=== PATIENT | male | born 1945 | race Caucasian/White ===

== ENCOUNTER → 2017-03-06 | Outpatient (CLI) | payer MEDICARE ==
[~2017-03-06] MED LIST: GLIM2TAB2 PO; GLIP5TAB10 PO; HYDR-3307 PO; LACT10SO28 PO; MAGN64TA9 PO; MORP15TA39 PO; OLME20TA PO; OMEP-110 PO; ONDA4TAB7 PO; OXYC20TA2 PO; OXYC5TAB3 PO; POLY17PO5 PO; SENN1TAB7 PO; SOLI5TAB PO; SUCR1TAB PO; TAMS-11 PO; WARF5TAB7 PO; WARF5TAB7 PO-COUM; ZOLP10TA PO; [UNRECOGNIZED DRUG - REMARK] PO; [UNRECOGNIZED DRUG - REMARK] PO
[2017-03-06 09:37] LABS: ASPARTATE AMINO TRANSFERASE 46 U/L (15-37); BLOOD UREA NITROGEN 14 mg/dL (7-18)
[2017-03-06 10:47] LABS: ANISOCYTOSIS 1+; MICROCYTOSIS 1+
[2017-03-06 10:48] LABS: OVALOCYTES 1+
== END | disposition home or self-care (01) ==
LOC: CFH 07:13
PROVIDERS: ATTEND Internal Medicine Gastroenterology
DX: K70.31 Alcoholic cirrhosis of liver with ascites (principal)
CPT/HCPCS: 36415; 80053; 83036; 85025; 85610

== ENCOUNTER → 2017-04-02 | Outpatient (CLI) | payer MEDICARE | END | disposition home or self-care (01) | LOC: CFH 07:25 | PROVIDERS: ATTEND Internal Medicine | DX: Z01.818 Encounter for other preprocedural examination (principal); Z79.01 Long term (current) use of anticoagulants | CPT/HCPCS: 36415; 85610 ==

== ENCOUNTER → 2017-05-08 | Outpatient (CLI) | payer MEDICARE ==
[~2017-05-08] MED LIST changes: +MORP-52 PO; -MORP15TA39 PO
[2017-05-08 13:18] LABS: ASPARTATE AMINO TRANSFERASE 53 U/L (15-37); BLOOD UREA NITROGEN 16 mg/dL (7-18)
== END | disposition home or self-care (01) ==
LOC: CFH 10:16
PROVIDERS: ATTEND Internal Medicine Gastroenterology
DX: K70.31 Alcoholic cirrhosis of liver with ascites (principal); R79.89 Other specified abnormal findings of blood chemistry
CPT/HCPCS: 36415; 80053; 82105; 83036; 85025; 85610

== ENCOUNTER → 2017-07-21 | Outpatient (CLI) | payer MEDICARE ==
[~2017-07-21] MED LIST changes: -OLME20TA PO; +OLME20TA19 PO; -SOLI5TAB PO; +SOLI5TAB2 PO
[2017-07-21 08:43] LABS: DAU SCREEN DISCLAIMER
== END | disposition home or self-care (01) ==
LOC: CFH 08:36
PROVIDERS: ATTEND Family Medicine
DX: K70.31 Alcoholic cirrhosis of liver with ascites (principal); Z03.89 Encounter for observation for other suspected diseases and conditions ruled out
CPT/HCPCS: 36415; 80184; 80299; 80307; 80320; 80323; 80345; 80346; G0479; G0480

== ENCOUNTER → 2017-08-07 | Outpatient (CLI) | payer MEDICARE ==
[2017-08-07 12:54] LABS: BLOOD UREA NITROGEN 14 mg/dL (7-18)
[2017-08-07 12:57] LABS: ASPARTATE AMINO TRANSFERASE 80 U/L (15-37)
[2017-08-07 13:05] LABS: HEMATOCRIT 36.8 % (39.2-51.8); HEMOGLOBIN 11.5 g/dL (13.7-18.0); WHITE BLOOD COUNT 3.1 x10^3/uL (3.4-10)
[2017-08-07 13:22] LABS: ANISOCYTOSIS 1+; MICROCYTOSIS 1+; OVALOCYTES 1+; POLYCHROMASIA 1+
== END | disposition home or self-care (01) ==
LOC: CFH 08:12
PROVIDERS: ATTEND Internal Medicine Gastroenterology
DX: K70.31 Alcoholic cirrhosis of liver with ascites (principal); R73.09 Other abnormal glucose
CPT/HCPCS: 36415; 80053; 83036; 85025; 85610

== ENCOUNTER → 2017-09-04 | Outpatient (CLI) | payer MEDICARE ==
[2017-09-04 13:32] LABS: HEMATOCRIT 40.6 % (39.2-51.8); HEMOGLOBIN 13.1 g/dL (13.7-18.0); WHITE BLOOD COUNT 3.5 x10^3/uL (3.4-10)
[2017-09-04 13:33] LABS: ANISOCYTOSIS 1+; MICROCYTOSIS 1+; OVALOCYTES 1+; POIKILOCYTOSIS 1+; POLYCHROMASIA 1+
[2017-09-04 13:48] LABS: ASPARTATE AMINO TRANSFERASE 48 U/L (15-37); BLOOD UREA NITROGEN 18 mg/dL (7-18)
== END | disposition home or self-care (01) ==
LOC: CFH 07:38
PROVIDERS: ATTEND Internal Medicine Gastroenterology
DX: K70.31 Alcoholic cirrhosis of liver with ascites (principal); R79.89 Other specified abnormal findings of blood chemistry
CPT/HCPCS: 36415; 80053; 83036; 85025; 85610

== ENCOUNTER → 2017-10-24 | Outpatient (CLI) | payer MEDICARE ==
[~2017-10-24] MED LIST changes: +GLIM1TAB2 PO; +LOSA50TA6 PO; +OMEP20TA62 PO; +OXYC10TA6 PO; +PROP20TA PO; +VENL75TA PO; +WARF2.5T73 PO; +ZOLP10TA5 PO
[2017-10-24 12:59] LABS: ALANINE AMINOTRANSFERASE 85 U/L (12-78); ALBUMIN 3.2 g/dL (3.4-5.0); ANION GAP 4 mmol/L (5-15); CALCIUM 8.7 mg/dL (8.5-10.1); CHLORIDE 107 mmol/L (98-107); CREATININE 1.14 mg/dL (0.7-1.3); INTERNATIONAL NORMALIZED RATIO 1.78 (0.93-1.1); PROTHROMBIN TIME 18.1 Seconds (9.6-11.5)
[2017-10-24 13:01] LABS: ALKALINE PHOSPHATASE 330 U/L (45-117); BILIRUBIN,TOTAL 1.6 mg/dL (0.2-1.0); TOTAL PROTEIN 7.6 g/dL (6.4-8.2)
[2017-10-24 13:36] LABS: MEAN CORPUSCULAR HEMOGLOBIN 27.5 pg (27.5-34.5); MEAN CORPUSCULAR HGB CONC 32.7 g/dL (33.2-36.2); MEAN CORPUSCULAR VOLUME 83.8 fL (81-97); MEAN PLATELET VOLUME 9.6 fL (7.4-10.4); PLATELET COUNT 62 x10^3/uL (130-400); RED BLOOD COUNT 5.21 x10^6/uL (4.38-5.82); RED CELL DISTRIBUTION WIDTH 18.3 % (9.4-14.8)
[2017-10-24 13:37] LABS: MD YES
[2017-10-24 13:40] LABS: BAND#(MANUAL) 0.07 x10^3/uL; BANDS%(MANUAL) 2 % (0-7); BASOS#(MANUAL) 0.04 x10^3/uL (0-0.1); BASOS% (MANUAL) 1 % (0-1); EOS#(MANUAL) 0.21 x10^3/uL (0.0-0.4); EOS% (MANUAL) 6 % (1-7)
[2017-10-24 13:42] LABS: MONOS#(MANUAL) 0.56 x10^3/uL (0.3-2.7); MONOS% (MANUAL) 16 % (2-9)
[2017-10-24 13:43] LABS: LYMPHS% (MANUAL) 20 % (22-44); SEG#(MANUAL) 1.93 x10^3/uL (1.8-6.8); SEGS% (MANUAL) 55 % (42-75)
[2017-10-24 13:45] LABS: <PLATELET ESTIMATE> DECREASED; <PLT MORPHOLOGY> NORMAL PLT MORPH; ANISOCYTOSIS 1+
[2017-10-24 13:46] LABS: HYPOCHROMIA 1+; OVALOCYTES 1+
== END | disposition home or self-care (01) ==
LOC: CFH 07:35
PROVIDERS: ATTEND Internal Medicine Gastroenterology
DX: K70.31 Alcoholic cirrhosis of liver with ascites (principal); R79.89 Other specified abnormal findings of blood chemistry
CPT/HCPCS: 36415; 80053; 85025; 85610

== ENCOUNTER → 2017-10-28 | Outpatient (CLI) | payer MEDICARE | LOC: STAR 08:07 | PROVIDERS: ATTEND Orthopaedic Surgery | DX: Z01.818 Encounter for other preprocedural examination (principal); G56.01 Carpal tunnel syndrome, right upper limb; M18.11 Unilateral primary osteoarthritis of first carpometacarpal joint, right hand; R94.31 Abnormal electrocardiogram [ECG] [EKG] | CPT/HCPCS: 93005 ==

== ENCOUNTER → 2018-02-12 | Outpatient (CLI) | payer MEDICARE ==
[~2018-02-12] MED LIST changes: +OLME20TA17 PO; -OLME20TA19 PO; +WARF-36 PO; +WARF-36 PO-COUM; -WARF5TAB7 PO; -WARF5TAB7 PO-COUM
[2018-02-12 12:54] LABS: INTERNATIONAL NORMALIZED RATIO 2.51 (0.93-1.1); MEAN CORPUSCULAR HEMOGLOBIN 28.8 pg (27.5-34.5); MEAN CORPUSCULAR HGB CONC 33.1 g/dL (33.2-36.2); MEAN CORPUSCULAR VOLUME 87.1 fL (81-97); MEAN PLATELET VOLUME 9.2 fL (7.4-10.4); PLATELET COUNT 64 x10^3/uL (130-400); PROTHROMBIN TIME 25.4 Seconds (9.6-11.5); RED BLOOD COUNT 4.75 x10^6/uL (4.38-5.82); RED CELL DISTRIBUTION WIDTH 17.5 % (9.4-14.8)
[2018-02-12 12:59] LABS: CHLORIDE 106 mmol/L (98-107)
[2018-02-12 13:04] LABS: ALANINE AMINOTRANSFERASE 50 U/L (12-78); ALKALINE PHOSPHATASE 297 U/L (45-117); ANION GAP 7 mmol/L (5-15); BILIRUBIN,TOTAL 0.9 mg/dL (0.2-1.0); CALCIUM 8.4 mg/dL (8.5-10.1); TOTAL PROTEIN 7.3 g/dL (6.4-8.2)
[2018-02-12 13:16] LABS: BASOPHILS # (AUTO) 0.05 x10^3/uL (0-0.1); BASOPHILS % (AUTO) 2 % (0-1); EOSINOPHILS # (AUTO) 0.26 x10^3/uL (0-0.4); EOSINOPHILS % (AUTO) 8 % (1-7); LYMPHOCYTES # (AUTO) 0.92 x10^3/uL (1-3.4); LYMPHOCYTES % (AUTO) 29 % (22-44); MD SCAN; MONOCYTES # (AUTO) 0.45 x10^3/uL (0.2-0.8); MONOCYTES % (AUTO) 14 % (2-9); NEUTROPHILS # (AUTO) 1.53 x10^3/uL (1.8-6.8); NEUTROPHILS % (AUTO) 48 % (42-75)
== END ==
LOC: CFH 08:40
PROVIDERS: ATTEND Internal Medicine Gastroenterology
DX: K70.31 Alcoholic cirrhosis of liver with ascites (principal); R79.9 Abnormal finding of blood chemistry, unspecified
CPT/HCPCS: 36415; 80053; 83036; 85025; 85610

== ENCOUNTER → 2018-03-20 | Outpatient (CLI) | payer MEDICARE ==
[~2018-03-20] MED LIST changes: -MAGN64TA9 PO; +MAGNESIUM DR64 MG PO
[2018-03-20 16:00] LABS: INTERNATIONAL NORMALIZED RATIO 2.11 (0.93-1.1); PROTHROMBIN TIME 21.6 Seconds (9.6-11.5)
[2018-03-20 16:05] LABS: ALBUMIN 3.1 g/dL (3.4-5.0); ANION GAP 7 mmol/L (5-15); CALCIUM 8.9 mg/dL (8.5-10.1); CHLORIDE 108 mmol/L (98-107)
[2018-03-20 16:09] LABS: ALANINE AMINOTRANSFERASE 55 U/L (12-78); ALKALINE PHOSPHATASE 274 U/L (45-117); BILIRUBIN,TOTAL 1.8 mg/dL (0.2-1.0); CREATININE 1.11 mg/dL (0.7-1.3); TOTAL PROTEIN 7.6 g/dL (6.4-8.2)
[2018-03-20 16:13] LABS: MEAN CORPUSCULAR HEMOGLOBIN 29.5 pg (27.5-34.5); MEAN CORPUSCULAR VOLUME 89.4 fL (81-97); MEAN PLATELET VOLUME 8.5 fL (7.4-10.4); PLATELET COUNT 64 x10^3/uL (130-400); RED BLOOD COUNT 4.79 x10^6/uL (4.38-5.82); RED CELL DISTRIBUTION WIDTH 17.2 % (9.4-14.8)
[2018-03-20 16:21] LABS: HEMOGLOBIN A1C 7.1 % (4.2-6.3)
[2018-03-20 16:57] LABS: ANISOCYTOSIS 1+; BASOPHILS # (AUTO) 0.04 x10^3/uL (0-0.1); BASOPHILS % (AUTO) 1 % (0-1); EOSINOPHILS # (AUTO) 0.16 x10^3/uL (0-0.4); EOSINOPHILS % (AUTO) 4 % (1-7); LYMPHOCYTES # (AUTO) 0.93 x10^3/uL (1-3.4); LYMPHOCYTES % (AUTO) 25 % (22-44); MD MORPH REVIEW ONLY; MONOCYTES # (AUTO) 0.49 x10^3/uL (0.2-0.8); MONOCYTES % (AUTO) 13 % (2-9); NEUTROPHILS # (AUTO) 2.06 x10^3/uL (1.8-6.8); NEUTROPHILS % (AUTO) 56 % (42-75)
[2018-03-20 16:58] LABS: <PLATELET ESTIMATE> DECREASED; LARGE PLATELETS 1+; OVALOCYTES 1+
== END ==
LOC: CFH 13:03
PROVIDERS: ATTEND Internal Medicine Gastroenterology
DX: K74.60 Unspecified cirrhosis of liver (principal); R79.89 Other specified abnormal findings of blood chemistry
CPT/HCPCS: 36415; 80053; 83036; 85025; 85610

== ENCOUNTER → 2018-04-08 | Outpatient (CLI) | payer MEDICARE | END | disposition home or self-care (01) | LOC: CFH 13:17 | PROVIDERS: ATTEND Family Medicine | DX: M47.892 Other spondylosis, cervical region (principal) | CPT/HCPCS: 72141 ==

== ENCOUNTER → 2018-05-11 | Outpatient (CLI) | payer MEDICARE ==
[2018-05-11 13:01] LABS: ALANINE AMINOTRANSFERASE 53 U/L (12-78); ALBUMIN 2.9 g/dL (3.4-5.0); ANION GAP 8 mmol/L (5-15); CHLORIDE 110 mmol/L (98-107); CREATININE 1.09 mg/dL (0.7-1.3)
[2018-05-11 13:02] LABS: INTERNATIONAL NORMALIZED RATIO 1.72 (0.93-1.1); PROTHROMBIN TIME 17.7 Seconds (9.6-11.5)
[2018-05-11 13:03] LABS: ALKALINE PHOSPHATASE 226 U/L (45-117); BILIRUBIN,TOTAL 1.7 mg/dL (0.2-1.0); TOTAL PROTEIN 7.2 g/dL (6.4-8.2)
[2018-05-11 13:22] LABS: HEMOGLOBIN A1C 6.8 % (4.2-6.3)
[2018-05-11 13:27] LABS: BASOPHILS # (AUTO) 0.04 x10^3/uL (0-0.1); BASOPHILS % (AUTO) 1 % (0-1); EOSINOPHILS # (AUTO) 0.07 x10^3/uL (0-0.4); EOSINOPHILS % (AUTO) 3 % (1-7); LYMPHOCYTES # (AUTO) 0.68 x10^3/uL (1-3.4); LYMPHOCYTES % (AUTO) 26 % (22-44); MD SCAN; MEAN CORPUSCULAR HEMOGLOBIN 29.7 pg (27.5-34.5); MEAN CORPUSCULAR HGB CONC 33.3 g/dL (33.2-36.2); MEAN CORPUSCULAR VOLUME 89.2 fL (81-97); MEAN PLATELET VOLUME 8.8 fL (7.4-10.4); MONOCYTES # (AUTO) 0.33 x10^3/uL (0.2-0.8); MONOCYTES % (AUTO) 13 % (2-9); NEUTROPHILS # (AUTO) 1.49 x10^3/uL (1.8-6.8); NEUTROPHILS % (AUTO) 57 % (42-75); PLATELET COUNT 67 x10^3/uL (130-400); RED BLOOD COUNT 4.61 x10^6/uL (4.38-5.82); RED CELL DISTRIBUTION WIDTH 16.6 % (9.4-14.8)
== END | disposition home or self-care (01) ==
LOC: CFH 10:31
PROVIDERS: ATTEND Internal Medicine Gastroenterology
DX: K70.31 Alcoholic cirrhosis of liver with ascites (principal); R79.9 Abnormal finding of blood chemistry, unspecified
CPT/HCPCS: 36415; 80053; 82105; 83036; 85025; 85610

== ENCOUNTER → 2018-07-30 | Outpatient (CLI) | payer MEDICARE ==
[~2018-07-30] MED LIST changes: -LOSA50TA6 PO; +LOSA50TA7 PO; -SENN1TAB7 PO; +SENN1TAB8 PO
[2018-07-30 15:46] LABS: INTERNATIONAL NORMALIZED RATIO 2.75 (0.93-1.1); PROTHROMBIN TIME 27.8 Seconds (9.6-11.5)
[2018-07-30 15:48] LABS: ALANINE AMINOTRANSFERASE 51 U/L (12-78); ALBUMIN 3.2 g/dL (3.4-5.0); ANION GAP 6 mmol/L (5-15); CALCIUM 8.4 mg/dL (8.5-10.1); CHLORIDE 106 mmol/L (98-107); CREATININE 1.31 mg/dL (0.7-1.3)
[2018-07-30 15:50] LABS: ALKALINE PHOSPHATASE 242 U/L (45-117); BILIRUBIN,TOTAL 1.5 mg/dL (0.2-1.0); TOTAL PROTEIN 7.6 g/dL (6.4-8.2)
[2018-07-30 16:21] LABS: BASOPHILS # (AUTO) 0.05 x10^3/uL (0-0.1); BASOPHILS % (AUTO) 1 % (0-1); EOSINOPHILS # (AUTO) 0.23 x10^3/uL (0-0.4); EOSINOPHILS % (AUTO) 5 % (1-7); LYMPHOCYTES # (AUTO) 0.81 x10^3/uL (1-3.4); LYMPHOCYTES % (AUTO) 19 % (22-44); MD SCAN; MEAN CORPUSCULAR HEMOGLOBIN 28.5 pg (27.5-34.5); MEAN CORPUSCULAR HGB CONC 32.9 g/dL (33.2-36.2); MEAN CORPUSCULAR VOLUME 86.7 fL (81-97); MEAN PLATELET VOLUME 9.5 fL (7.4-10.4); MONOCYTES # (AUTO) 0.45 x10^3/uL (0.2-0.8); MONOCYTES % (AUTO) 10 % (2-9); NEUTROPHILS % (AUTO) 65 % (42-75); PLATELET COUNT 61 x10^3/uL (130-400); RED BLOOD COUNT 5.02 x10^6/uL (4.38-5.82); RED CELL DISTRIBUTION WIDTH 15.9 % (9.4-14.8)
== END | disposition home or self-care (01) ==
LOC: CFH 13:49
PROVIDERS: ATTEND Internal Medicine Gastroenterology
DX: K70.31 Alcoholic cirrhosis of liver with ascites (principal); R79.9 Abnormal finding of blood chemistry, unspecified
CPT/HCPCS: 36415; 80053; 83036; 85025; 85610

== ENCOUNTER → 2018-09-03 | Outpatient (CLI) | payer MEDICARE ==
[2018-09-03 15:47] LABS: INTERNATIONAL NORMALIZED RATIO 3.01 (0.93-1.1); PROTHROMBIN TIME 30.6 Seconds (9.6-11.5)
[2018-09-03 15:50] LABS: ALANINE AMINOTRANSFERASE 61 U/L (12-78); ALBUMIN 2.8 g/dL (3.4-5.0); ANION GAP 6 mmol/L (5-15); CALCIUM 8.1 mg/dL (8.5-10.1); CHLORIDE 106 mmol/L (98-107); CREATININE 1.16 mg/dL (0.7-1.3)
[2018-09-03 15:53] LABS: ALKALINE PHOSPHATASE 261 U/L (45-117); BILIRUBIN,TOTAL 0.9 mg/dL (0.2-1.0); TOTAL PROTEIN 6.9 g/dL (6.4-8.2)
[2018-09-03 16:13] LABS: MEAN CORPUSCULAR HEMOGLOBIN 28.5 pg (27.5-34.5); MEAN CORPUSCULAR HGB CONC 33.3 g/dL (33.2-36.2); MEAN CORPUSCULAR VOLUME 85.5 fL (81-97); MEAN PLATELET VOLUME 9.2 fL (7.4-10.4); PLATELET COUNT 66 x10^3/uL (130-400); RED BLOOD COUNT 4.64 x10^6/uL (4.38-5.82)
[2018-09-03 16:19] LABS: HEMOGLOBIN A1C 7.6 % (4.2-6.3)
[2018-09-03 17:10] LABS: MD YES
[2018-09-03 17:15] LABS: BAND#(MANUAL) 0.08 x10^3/uL; BANDS%(MANUAL) 2 % (0-7); BASOS#(MANUAL) 0.08 x10^3/uL (0-0.1); BASOS% (MANUAL) 2 % (0-1); EOS% (MANUAL) 10 % (1-7); LYMPH#(MANUAL) 0.92 x10^3/uL (1-3.4); LYMPHS% (MANUAL) 23 % (22-44); MONOS% (MANUAL) 10 % (2-9); SEG#(MANUAL) 2.12 x10^3/uL (1.8-6.8); SEGS% (MANUAL) 53 % (42-75)
[2018-09-03 17:16] LABS: ANISOCYTOSIS 1+
[2018-09-03 17:18] LABS: <PLATELET ESTIMATE> DECREASED; <PLT MORPHOLOGY> NORMAL PLT MORPH
== END | disposition home or self-care (01) ==
LOC: CFH 13:03
PROVIDERS: ATTEND Internal Medicine Gastroenterology
DX: K70.31 Alcoholic cirrhosis of liver with ascites (principal); R79.9 Abnormal finding of blood chemistry, unspecified
CPT/HCPCS: 36415; 80053; 83036; 85025; 85610

== ENCOUNTER 2018-11-05 09:50 | Outpatient (CLI) | payer MEDICARE ==
[~2018-11-05 09:50] MED LIST changes: +LOSA50TA14 PO; -LOSA50TA7 PO; +WARF2.5T32 PO; -WARF2.5T73 PO
[2018-11-05 12:47] LABS: INTERNATIONAL NORMALIZED RATIO 3.49 (0.93-1.1); PROTHROMBIN TIME 35.3 Seconds (9.6-11.5)
[2018-11-05 13:00] LABS: MEAN CORPUSCULAR HEMOGLOBIN 27.7 pg (27.5-34.5); MEAN CORPUSCULAR HGB CONC 33.3 g/dL (33.2-36.2); MEAN CORPUSCULAR VOLUME 83.4 fL (81-97); MEAN PLATELET VOLUME 9.7 fL (7.4-10.4); PLATELET COUNT 68 x10^3/uL (130-400); RED BLOOD COUNT 4.41 x10^6/uL (4.38-5.82); RED CELL DISTRIBUTION WIDTH 19.4 % (9.4-14.8)
[2018-11-05 13:12] LABS: BASOPHILS # (AUTO) 0.04 x10^3/uL (0-0.1); BASOPHILS % (AUTO) 1 % (0-1); EOSINOPHILS # (AUTO) 0.17 x10^3/uL (0-0.4); EOSINOPHILS % (AUTO) 4 % (1-7); LYMPHOCYTES % (AUTO) 21 % (22-44); MD SCAN; MONOCYTES # (AUTO) 0.52 x10^3/uL (0.2-0.8); MONOCYTES % (AUTO) 14 % (2-9); NEUTROPHILS # (AUTO) 2.25 x10^3/uL (1.8-6.8); NEUTROPHILS % (AUTO) 60 % (42-75)
[2018-11-05 13:54] LABS: ALBUMIN 2.8 g/dL (3.4-5.0); ANION GAP 8 mmol/L (5-15); CALCIUM 8.3 mg/dL (8.5-10.1); CHLORIDE 107 mmol/L (98-107)
[2018-11-05 14:01] LABS: ALANINE AMINOTRANSFERASE 44 U/L (12-78); ALKALINE PHOSPHATASE 253 U/L (45-117); BILIRUBIN,TOTAL 0.9 mg/dL (0.2-1.0); CREATININE 1.22 mg/dL (0.7-1.3); TOTAL PROTEIN 7.1 g/dL (6.4-8.2)
[2018-11-05 16:36] LABS: HEMOGLOBIN A1C 6.4 % (4.2-6.3)
== END 2018-11-05 23:59 | disposition home or self-care (01) ==
LOC: CFH 09:50
PROVIDERS: ATTEND Internal Medicine Gastroenterology
DX: K70.31 Alcoholic cirrhosis of liver with ascites (principal); R79.9 Abnormal finding of blood chemistry, unspecified
CPT/HCPCS: 36415; 80053; 82105; 83036; 85025; 85610

== ENCOUNTER → 2018-11-26 | Outpatient (CLI) | payer MEDICARE ==
[2018-11-26 16:30] LABS: MEAN CORPUSCULAR HEMOGLOBIN 27.7 pg (27.5-34.5); MEAN CORPUSCULAR HGB CONC 33.3 g/dL (33.2-36.2); MEAN CORPUSCULAR VOLUME 83.3 fL (81-97); MEAN PLATELET VOLUME 8.8 fL (7.4-10.4); PLATELET COUNT 71 x10^3/uL (130-400); RED BLOOD COUNT 4.19 x10^6/uL (4.38-5.82); RED CELL DISTRIBUTION WIDTH 18.9 % (9.4-14.8)
[2018-11-26 16:43] LABS: ALANINE AMINOTRANSFERASE 53 U/L (12-78); ALBUMIN 2.8 g/dL (3.4-5.0); ANION GAP 6 mmol/L (5-15); CALCIUM 8.8 mg/dL (8.5-10.1); CHLORIDE 105 mmol/L (98-107); CHOLESTEROL, TOTAL 139 mg/dL (140-239); CREATININE 1.25 mg/dL (0.7-1.3)
[2018-11-26 16:46] LABS: ALKALINE PHOSPHATASE 280 U/L (45-117); BILIRUBIN,TOTAL 0.9 mg/dL (0.2-1.0); CHOL/HDL RATIO 2.8; HDL CHOL % 36 % (26-37); HDL CHOLESTEROL (DIRECT) 50 mg/dL (40-60); LDL CHOLESTEROL,CALCULATED 69 mg/dL (54-169); LDL/HDL RATIO 1.4 (0.5-3.0); TOTAL PROTEIN 7.4 g/dL (6.4-8.2); TRIGLYCERIDES 98 mg/dL (50-200); VLDL CHOLESTEROL 20 mg/dL (0-25)
[2018-11-26 16:51] LABS: BASOPHILS # (AUTO) 0.04 x10^3/uL (0-0.1); BASOPHILS % (AUTO) 1 % (0-1); EOSINOPHILS # (AUTO) 0.15 x10^3/uL (0-0.4); EOSINOPHILS % (AUTO) 4 % (1-7); LYMPHOCYTES # (AUTO) 0.91 x10^3/uL (1-3.4); LYMPHOCYTES % (AUTO) 24 % (22-44); MD SCAN; MONOCYTES # (AUTO) 0.64 x10^3/uL (0.2-0.8); MONOCYTES % (AUTO) 17 % (2-9); NEUTROPHILS # (AUTO) 2.04 x10^3/uL (1.8-6.8); NEUTROPHILS % (AUTO) 54 % (42-75)
[2018-11-26 17:14] LABS: HEMOGLOBIN A1C 6.4 % (4.2-6.3)
== END | disposition home or self-care (01) ==
LOC: CFH 12:52
PROVIDERS: ATTEND Internal Medicine Gastroenterology
DX: I12.9 Hypertensive chronic kidney disease with stage 1 through stage 4 chronic kidney disease, or unspecified chronic kidney disease (principal); E11.22 Type 2 diabetes mellitus with diabetic chronic kidney disease; N18.9 Chronic kidney disease, unspecified; I25.10 Atherosclerotic heart disease of native coronary artery without angina pectoris; F32.9 Major depressive disorder, single episode, unspecified; Z79.899 Other long term (current) drug therapy
CPT/HCPCS: 36415; 80053; 80061; 83036; 85025

== ENCOUNTER → 2018-12-01 | Outpatient (CLI) | payer MEDICARE ==
[2018-12-01 12:45] LABS: INTERNATIONAL NORMALIZED RATIO 3.48 (0.93-1.1); PROTHROMBIN TIME 35.2 Seconds (9.6-11.5)
== END | disposition home or self-care (01) ==
LOC: CFH 07:48
PROVIDERS: ATTEND Family Medicine
DX: I81 Portal vein thrombosis (principal)
CPT/HCPCS: 36415; 85610

== ENCOUNTER → 2019-02-08 | Outpatient (CLI) | payer MEDICARE ==
[~2019-02-08] MED LIST changes: +SENN-177 PO; -SENN1TAB8 PO
[2019-02-08 16:10] LABS: INTERNATIONAL NORMALIZED RATIO 2.99 (0.93-1.1); PROTHROMBIN TIME 30.1 Seconds (9.6-11.5)
== END | disposition home or self-care (01) ==
LOC: CFH 14:19
PROVIDERS: ATTEND Family Medicine
DX: I81 Portal vein thrombosis (principal)
CPT/HCPCS: 36415; 85610

== ENCOUNTER → 2019-03-29 | Outpatient (CLI) | payer MEDICARE ==
[2019-03-29 12:37] LABS: INTERNATIONAL NORMALIZED RATIO 3.38 (0.93-1.1); PROTHROMBIN TIME 33.9 Seconds (9.6-11.5)
[2019-03-29 12:51] LABS: ANION GAP 6 mmol/L (5-15); CALCIUM 8.4 mg/dL (8.5-10.1); CHLORIDE 110 mmol/L (98-107)
[2019-03-29 12:56] LABS: ALANINE AMINOTRANSFERASE 40 U/L (12-78); ALKALINE PHOSPHATASE 256 U/L (45-117); BILIRUBIN,TOTAL 1.2 mg/dL (0.2-1.0); CHOL/HDL RATIO 2.6; CHOLESTEROL, TOTAL 133 mg/dL (140-239); HDL CHOL % 39 % (26-37); HDL CHOLESTEROL (DIRECT) 52 mg/dL (40-60); LDL CHOLESTEROL,CALCULATED 67 mg/dL (54-169); LDL/HDL RATIO 1.3 (0.5-3.0); TOTAL PROTEIN 7.4 g/dL (6.4-8.2); TRIGLYCERIDES 72 mg/dL (50-200); VLDL CHOLESTEROL 14 mg/dL (0-25)
[2019-03-29 12:57] LABS: HEMOGLOBIN A1C 6.7 % (4.2-6.3)
[2019-03-29 13:10] LABS: MEAN CORPUSCULAR HEMOGLOBIN 26.2 pg (27.5-34.5); MEAN CORPUSCULAR VOLUME 81.9 fL (81-97); MEAN PLATELET VOLUME 9.2 fL (7.4-10.4); PLATELET COUNT 75 x10^3/uL (130-400); RED CELL DISTRIBUTION WIDTH 18.2 % (9.4-14.8)
== END | disposition home or self-care (01) ==
LOC: CFH 10:03
PROVIDERS: ATTEND Family Medicine
DX: K70.30 Alcoholic cirrhosis of liver without ascites (principal); I12.9 Hypertensive chronic kidney disease with stage 1 through stage 4 chronic kidney disease, or unspecified chronic kidney disease; E11.22 Type 2 diabetes mellitus with diabetic chronic kidney disease; N18.3 Chronic kidney disease, stage 3 (moderate); M51.36 Other intervertebral disc degeneration, lumbar region
CPT/HCPCS: 36415; 80053; 80061; 83036; 85027; 85610

== ENCOUNTER 2019-05-18 13:52 | Outpatient (CLI) | payer MEDICARE | END 2019-05-18 23:59 | disposition home or self-care (01) | LOC: CFH 13:52 | PROVIDERS: ATTEND Family Medicine | DX: I81 Portal vein thrombosis (principal) | CPT/HCPCS: 36415; 85610 ==

== ENCOUNTER 2019-05-24 13:12 | Outpatient (CLI) | payer MEDICARE ==
[~2019-05-24 13:12] MED LIST changes: -HYDR-3307 PO; +HYDR-36 PO
[2019-05-24 16:16] LABS: INTERNATIONAL NORMALIZED RATIO 3.48 (0.93-1.1); PROTHROMBIN TIME 34.8 Seconds (9.6-11.5)
[2019-05-24 16:21] LABS: ALANINE AMINOTRANSFERASE 24 U/L (12-78); ALBUMIN 2.7 g/dL (3.4-5.0); ANION GAP 8 mmol/L (5-15); CALCIUM 8.2 mg/dL (8.5-10.1); CHLORIDE 109 mmol/L (98-107); CHOLESTEROL, TOTAL 91 mg/dL (140-239); CREATININE 1.68 mg/dL (0.7-1.3)
[2019-05-24 16:23] LABS: ALKALINE PHOSPHATASE 205 U/L (45-117); CHOL/HDL RATIO 3.6; HDL CHOL % 27 % (26-37); HDL CHOLESTEROL (DIRECT) 25 mg/dL (40-60); LDL CHOLESTEROL,CALCULATED 49 mg/dL (54-169); TOTAL PROTEIN 7.3 g/dL (6.4-8.2); TRIGLYCERIDES 83 mg/dL (50-200); VLDL CHOLESTEROL 17 mg/dL (0-25)
[2019-05-24 17:10] LABS: BASOPHILS # (AUTO) 0.01 x10^3/uL (0-0.1); BASOPHILS % (AUTO) 0 % (0-1); EOSINOPHILS # (AUTO) 0.08 x10^3/uL (0-0.4); EOSINOPHILS % (AUTO) 3 % (1-7); LYMPHOCYTES # (AUTO) 0.49 x10^3/uL (1-3.4); LYMPHOCYTES % (AUTO) 16 % (22-44); MD SCAN; MEAN CORPUSCULAR HEMOGLOBIN 26.8 pg (27.5-34.5); MEAN CORPUSCULAR HGB CONC 32.1 g/dL (33.2-36.2); MEAN CORPUSCULAR VOLUME 83.5 fL (81-97); MONOCYTES # (AUTO) 0.55 x10^3/uL (0.2-0.8); MONOCYTES % (AUTO) 18 % (2-9); NEUTROPHILS # (AUTO) 1.87 x10^3/uL (1.8-6.8); NEUTROPHILS % (AUTO) 62 % (42-75); PLATELET COUNT 78 x10^3/uL (130-400); RED BLOOD COUNT 3.59 x10^6/uL (4.38-5.82); RED CELL DISTRIBUTION WIDTH 21.7 % (9.4-14.8)
== END 2019-05-24 23:59 | disposition home or self-care (01) ==
LOC: CFH 13:12
PROVIDERS: ATTEND Internal Medicine Cardiovascular Disease
DX: I81 Portal vein thrombosis (principal); K75.1 Phlebitis of portal vein; Z79.01 Long term (current) use of anticoagulants; E11.22 Type 2 diabetes mellitus with diabetic chronic kidney disease; I12.9 Hypertensive chronic kidney disease with stage 1 through stage 4 chronic kidney disease, or unspecified chronic kidney disease; K70.30 Alcoholic cirrhosis of liver without ascites
CPT/HCPCS: 36415; 80053; 80061; 85025; 85610

== ENCOUNTER 2019-06-01 14:17 | Outpatient (CLI) | payer MEDICARE | END 2019-06-01 23:59 | disposition home or self-care (01) | LOC: CFH 14:17 | PROVIDERS: ATTEND Internal Medicine Cardiovascular Disease | DX: K75.1 Phlebitis of portal vein (principal); I81 Portal vein thrombosis; Z79.01 Long term (current) use of anticoagulants | CPT/HCPCS: 36415; 85610 ==

== ENCOUNTER 2019-07-06 12:07 | Outpatient (CLI) | payer MEDICARE ==
[2019-07-06 15:51] LABS: MEAN CORPUSCULAR HEMOGLOBIN 26.9 pg (27.5-34.5); MEAN CORPUSCULAR VOLUME 84.2 fL (81-97); MEAN PLATELET VOLUME 9.8 fL (7.4-10.4); PLATELET COUNT 83 x10^3/uL (130-400); RED BLOOD COUNT 4.62 x10^6/uL (4.38-5.82); RED CELL DISTRIBUTION WIDTH 20.8 % (9.4-14.8)
[2019-07-06 16:00] LABS: CHLORIDE 108 mmol/L (98-107)
[2019-07-06 16:09] LABS: ALANINE AMINOTRANSFERASE 32 U/L (12-78); ALKALINE PHOSPHATASE 213 U/L (45-117); ANION GAP 5 mmol/L (5-15); BILIRUBIN, DIRECT 0.5 mg/dL (0.1-0.2); BILIRUBIN,TOTAL 1.5 mg/dL (0.2-1.0); CALCIUM 8.8 mg/dL (8.5-10.1); CHOL/HDL RATIO 3.1; CHOLESTEROL, TOTAL 110 mg/dL (140-239); CREATININE 1.23 mg/dL (0.7-1.3); HDL CHOL % 33 % (26-37); HDL CHOLESTEROL (DIRECT) 36 mg/dL (40-60); LDL CHOLESTEROL,CALCULATED 61 mg/dL (54-169); LDL/HDL RATIO 1.7 (0.5-3.0); TOTAL PROTEIN 7.8 g/dL (6.4-8.2); TRIGLYCERIDES 65 mg/dL (50-200); VLDL CHOLESTEROL 13 mg/dL (0-25)
[2019-07-06 16:24] LABS: HEMOGLOBIN A1C 5.3 % (4.2-6.3)
[2019-07-06 16:42] LABS: INTERNATIONAL NORMALIZED RATIO 2.36 (0.93-1.1)
== END 2019-07-06 23:59 | disposition home or self-care (01) ==
LOC: CFH 12:07
PROVIDERS: ATTEND Internal Medicine Cardiovascular Disease
DX: E11.22 Type 2 diabetes mellitus with diabetic chronic kidney disease (principal); N18.2 Chronic kidney disease, stage 2 (mild); E70.30 Albinism, unspecified; D64.9 Anemia, unspecified; D69.1 Qualitative platelet defects; I72.9 Aneurysm of unspecified site; K21.9 Gastro-esophageal reflux disease without esophagitis
CPT/HCPCS: 36415; 80053; 80061; 82248; 83036; 85027; 85610

== ENCOUNTER → 2019-08-23 | Outpatient (CLI) | payer MEDICARE ==
[~2019-08-23] MED LIST changes: -GLIM1TAB2 PO; +GLIM1TAB3 PO; -GLIM2TAB2 PO; +GLIM2TAB3 PO
[2019-08-23 13:05] LABS: INTERNATIONAL NORMALIZED RATIO 2.11 (0.93-1.1); PROTHROMBIN TIME 21.5 Seconds (9.6-11.5)
[2019-08-23 13:41] LABS: CHLORIDE 110 mmol/L (98-107)
[2019-08-23 13:50] LABS: ALANINE AMINOTRANSFERASE 34 U/L (12-78); ALBUMIN 2.8 g/dL (3.4-5.0); ALKALINE PHOSPHATASE 250 U/L (45-117); ANION GAP 4 mmol/L (5-15); BILIRUBIN,TOTAL 1.3 mg/dL (0.2-1.0); CALCIUM 8.7 mg/dL (8.5-10.1); CREATININE 1.26 mg/dL (0.7-1.3)
== END | disposition home or self-care (01) ==
LOC: CFH 10:13
PROVIDERS: ATTEND Internal Medicine
DX: I81 Portal vein thrombosis (principal); K75.1 Phlebitis of portal vein; Z79.01 Long term (current) use of anticoagulants
CPT/HCPCS: 36415; 80053; 85610

== ENCOUNTER 2019-09-07 10:54 | Outpatient (CLI) | payer MEDICARE ==
[2019-09-07 13:20] LABS: ALANINE AMINOTRANSFERASE 33 U/L (12-78); ALBUMIN 2.8 g/dL (3.4-5.0); ANION GAP 9 mmol/L (5-15); CALCIUM 7.9 mg/dL (8.5-10.1); CHLORIDE 100 mmol/L (98-107); CREATININE 1.63 mg/dL (0.7-1.3)
[2019-09-07 13:22] LABS: ALKALINE PHOSPHATASE 204 U/L (45-117); BILIRUBIN,TOTAL 1.7 mg/dL (0.2-1.0)
[2019-09-07 13:26] LABS: HEMOGLOBIN A1C 5.7 % (4.2-6.3)
[2019-09-07 13:31] LABS: MEAN CORPUSCULAR HEMOGLOBIN 28.4 pg (27.5-34.5); MEAN CORPUSCULAR HGB CONC 32.8 g/dL (33.2-36.2); MEAN CORPUSCULAR VOLUME 86.8 fL (81-97); MEAN PLATELET VOLUME 9.2 fL (7.4-10.4); PLATELET COUNT 92 x10^3/uL (130-400); RED BLOOD COUNT 4.17 x10^6/uL (4.38-5.82); RED CELL DISTRIBUTION WIDTH 20.9 % (9.4-14.8)
== END 2019-09-07 23:59 | disposition home or self-care (01) ==
LOC: CFH 10:54
PROVIDERS: ATTEND Family Medicine
DX: E11.22 Type 2 diabetes mellitus with diabetic chronic kidney disease (principal); I25.83 Coronary atherosclerosis due to lipid rich plaque; I12.9 Hypertensive chronic kidney disease with stage 1 through stage 4 chronic kidney disease, or unspecified chronic kidney disease; N18.9 Chronic kidney disease, unspecified
CPT/HCPCS: 36415; 80053; 83036; 85027

== ENCOUNTER → 2019-10-12 | Outpatient (CLI) | payer MEDICARE ==
[2019-10-12 18:00] LABS: INTERNATIONAL NORMALIZED RATIO 1.93 (0.93-1.1); PROTHROMBIN TIME 19.8 Seconds (9.6-11.5)
== END | disposition home or self-care (01) ==
LOC: CFH 13:19
PROVIDERS: ATTEND Internal Medicine Cardiovascular Disease
CPT/HCPCS: 36415; 85610

== ENCOUNTER → 2019-11-22 | Outpatient (CLI) | payer MEDICARE ==
[2019-11-22 13:08] LABS: INTERNATIONAL NORMALIZED RATIO 1.65 (0.93-1.1); PROTHROMBIN TIME 17.6 Seconds (9.6-11.5)
[2019-11-22 13:11] LABS: ALBUMIN 2.7 g/dL (3.4-5.0); ANION GAP 5 mmol/L (5-15); CALCIUM 8.5 mg/dL (8.5-10.1); CHLORIDE 101 mmol/L (98-107)
[2019-11-22 13:17] LABS: ALANINE AMINOTRANSFERASE 32 U/L (12-78); ALKALINE PHOSPHATASE 206 U/L (45-117); BILIRUBIN,TOTAL 0.9 mg/dL (0.2-1.0); CHOL/HDL RATIO 3.1; CHOLESTEROL, TOTAL 111 mg/dL (140-239); CREATININE 1.56 mg/dL (0.7-1.3); HDL CHOL % 32 % (26-37); HDL CHOLESTEROL (DIRECT) 36 mg/dL (40-60); LDL CHOLESTEROL,CALCULATED 56 mg/dL (54-169); LDL/HDL RATIO 1.6 (0.5-3.0); TRIGLYCERIDES 96 mg/dL (50-200); VLDL CHOLESTEROL 19 mg/dL (0-25)
[2019-11-22 13:26] LABS: BASOPHILS # (AUTO) 0.02 x10^3/uL (0-0.1); BASOPHILS % (AUTO) 1 % (0-1); EOSINOPHILS % (AUTO) 3 % (1-7); LYMPHOCYTES # (AUTO) 0.56 x10^3/uL (1-3.4); LYMPHOCYTES % (AUTO) 15 % (22-44); MD SCAN; MEAN CORPUSCULAR HEMOGLOBIN 26.7 pg (27.5-34.5); MEAN CORPUSCULAR HGB CONC 32.2 g/dL (33.2-36.2); MEAN PLATELET VOLUME 8.8 fL (7.4-10.4); MONOCYTES # (AUTO) 0.66 x10^3/uL (0.2-0.8); MONOCYTES % (AUTO) 17 % (2-9); NEUTROPHILS # (AUTO) 2.47 x10^3/uL (1.8-6.8); NEUTROPHILS % (AUTO) 65 % (42-75); PLATELET COUNT 80 x10^3/uL (130-400); RED CELL DISTRIBUTION WIDTH 16.7 % (9.4-14.8)
== END | disposition home or self-care (01) ==
LOC: CFH 08:28
PROVIDERS: ATTEND Internal Medicine Cardiovascular Disease
DX: I81 Portal vein thrombosis (principal); K75.1 Phlebitis of portal vein; E11.22 Type 2 diabetes mellitus with diabetic chronic kidney disease; I25.10 Atherosclerotic heart disease of native coronary artery without angina pectoris; K70.31 Alcoholic cirrhosis of liver with ascites; F12.99 Cannabis use, unspecified with unspecified cannabis-induced disorder; I25.83 Coronary atherosclerosis due to lipid rich plaque; Z79.01 Long term (current) use of anticoagulants
CPT/HCPCS: 36415; 80053; 80061; 83036; 85025; 85610

== ENCOUNTER → 2020-01-11 | Outpatient (CLI) | payer MEDICARE ==
[~2020-01-11] MED LIST changes: -GLIM1TAB3 PO; +GLIM1TAB7 PO; -GLIM2TAB3 PO; +GLIM2TAB7 PO
[2020-01-11 14:53] LABS: INTERNATIONAL NORMALIZED RATIO 3.11 (0.93-1.1); PROTHROMBIN TIME 33.4 Seconds (9.6-11.5)
== END | disposition home or self-care (01) ==
LOC: CFH 08:43
PROVIDERS: ATTEND Family Medicine
DX: K75.1 Phlebitis of portal vein (principal); I81 Portal vein thrombosis; Z79.01 Long term (current) use of anticoagulants
CPT/HCPCS: 36415; 85610

== ENCOUNTER → 2020-01-19 | Outpatient (CLI) | payer MEDICARE ==
[2020-01-19 15:54] LABS: INTERNATIONAL NORMALIZED RATIO 2.49 (0.93-1.1); PROTHROMBIN TIME 26.6 Seconds (9.6-11.5)
== END | disposition home or self-care (01) ==
LOC: CFH 14:22
PROVIDERS: ATTEND Internal Medicine Cardiovascular Disease
DX: K75.1 Phlebitis of portal vein (principal); Z79.01 Long term (current) use of anticoagulants
CPT/HCPCS: 36415; 85610

== ENCOUNTER 2020-02-21 07:31 | Outpatient (CLI) | payer MEDICARE ==
[2020-02-21 13:01] LABS: INTERNATIONAL NORMALIZED RATIO 1.66 (0.93-1.1); PROTHROMBIN TIME 17.7 Seconds (9.6-11.5)
== END 2020-02-21 23:59 | disposition home or self-care (01) ==
LOC: CFH 07:31
PROVIDERS: ATTEND Internal Medicine Cardiovascular Disease
DX: K75.1 Phlebitis of portal vein (principal); Z79.01 Long term (current) use of anticoagulants
CPT/HCPCS: 36415; 85610

== ENCOUNTER 2020-03-22 11:11 | Outpatient (CLI) | payer MEDICARE ==
[~2020-03-22 11:11] MED LIST changes: +HYDR-3246 PO; -HYDR-36 PO
[2020-03-22 13:19] LABS: MEAN CORPUSCULAR HEMOGLOBIN 27.9 pg (27.5-34.5); MEAN CORPUSCULAR HGB CONC 32.7 g/dL (33.2-36.2); MEAN CORPUSCULAR VOLUME 85.3 fL (81-97); MEAN PLATELET VOLUME 8.9 fL (7.4-10.4); PLATELET COUNT 68 x10^3/uL (130-400); RED BLOOD COUNT 4.37 x10^6/uL (4.38-5.82); RED CELL DISTRIBUTION WIDTH 19.5 % (9.4-14.8)
[2020-03-22 13:20] LABS: INTERNATIONAL NORMALIZED RATIO 1.79 (0.93-1.1); PROTHROMBIN TIME 19.1 Seconds (9.6-11.5)
[2020-03-22 14:07] LABS: CHLORIDE 99 mmol/L (98-107)
[2020-03-22 14:31] LABS: ALBUMIN 3.1 g/dL (3.4-5.0); ANION GAP 8 mmol/L (5-15); CALCIUM 9.6 mg/dL (8.5-10.1)
[2020-03-22 15:03] LABS: ALANINE AMINOTRANSFERASE 58 U/L (12-78); ALKALINE PHOSPHATASE 254 U/L (45-117); BILIRUBIN,TOTAL 1.2 mg/dL (0.2-1.0); CHOL/HDL RATIO 2.2; CHOLESTEROL, TOTAL 125 mg/dL (140-239); CREATININE 1.57 mg/dL (0.7-1.3); HDL CHOL % 45 % (26-37); HDL CHOLESTEROL (DIRECT) 56 mg/dL (40-60); LDL CHOLESTEROL,CALCULATED 49 mg/dL (54-169); LDL/HDL RATIO 0.9 (0.5-3.0); TRIGLYCERIDES 102 mg/dL (50-200); VLDL CHOLESTEROL 20 mg/dL (0-25)
[2020-03-22 15:13] LABS: TOTAL PROTEIN 8.6 g/dL (6.4-8.2)
== END 2020-03-22 23:59 | disposition home or self-care (01) ==
LOC: CFH 11:11
PROVIDERS: ATTEND Internal Medicine Cardiovascular Disease
DX: E11.22 Type 2 diabetes mellitus with diabetic chronic kidney disease (principal); K75.1 Phlebitis of portal vein; I25.10 Atherosclerotic heart disease of native coronary artery without angina pectoris; I12.9 Hypertensive chronic kidney disease with stage 1 through stage 4 chronic kidney disease, or unspecified chronic kidney disease; Z79.01 Long term (current) use of anticoagulants
CPT/HCPCS: 36415; 80053; 80061; 83036; 85027; 85610

== ENCOUNTER → 2020-05-02 | Outpatient (CLI) | payer MEDICARE ==
[2020-05-02 13:14] LABS: INTERNATIONAL NORMALIZED RATIO 2.32 (0.93-1.1); PROTHROMBIN TIME 24.8 Seconds (9.6-11.5)
== END | disposition home or self-care (01) ==
LOC: CFH 11:13
PROVIDERS: ATTEND Internal Medicine Cardiovascular Disease
DX: K75.1 Phlebitis of portal vein (principal); Z79.01 Long term (current) use of anticoagulants
CPT/HCPCS: 36415; 85610

== ENCOUNTER → 2020-06-23 | Outpatient (CLI) | payer MEDICARE ==
[2020-06-23 12:32] LABS: INTERNATIONAL NORMALIZED RATIO 3.06 (0.93-1.1); PROTHROMBIN TIME 31.9 Seconds (9.6-11.5)
== END | disposition home or self-care (01) ==
LOC: CFH 10:51
PROVIDERS: ATTEND Internal Medicine Cardiovascular Disease
DX: K75.1 Phlebitis of portal vein (principal); Z79.01 Long term (current) use of anticoagulants
CPT/HCPCS: 36415; 85610

== ENCOUNTER 2020-08-01 14:15 | Inpatient (IN) | payer MEDICARE ==
[~2020-08-01] VITALS: Ht 172.7 cm; Wt 93.6 kg
[2020-08-01] MEDS ORDERED: SODIUM CHLORIDE 0.9% 1,000ML IVBOLUS ONE (15:00)
[2020-08-01 15:04] LABS: BASOPHILS % (AUTO) 0 % (0-1); EOSINOPHILS % (AUTO) 0 % (1-7); LYMPHOCYTES % (AUTO) 6 % (22-44); MEAN CORPUSCULAR HEMOGLOBIN 23.5 pg (27.5-34.5); MEAN CORPUSCULAR HGB CONC 31.4 g/dL (33.2-36.2); MEAN PLATELET VOLUME 7.4 fL (7.4-10.4); MONOCYTES % (AUTO) 13 % (2-9); NEUTROPHILS % (AUTO) 81 % (42-75); PLATELET COUNT 156 x10^3/uL (130-400); RED BLOOD COUNT 2.87 x10^6/uL (4.38-5.82); RED CELL DISTRIBUTION WIDTH 20.6 % (9.4-14.8)
[2020-08-01 15:06] LABS: ANION GAP 10 mmol/L (5-15); CALCIUM 8.8 mg/dL (8.5-10.1); CHLORIDE 100 mmol/L (98-107); CREATININE 2.41 mg/dL (0.7-1.3)
[2020-08-01 15:07] LABS: ALANINE AMINOTRANSFERASE 104 U/L (12-78); ALBUMIN 2.3 g/dL (3.4-5.0)
--- NOTE | 2020-08-01 15:11 | NUR ---
PT HAS C/O PAIN, UPDATED. WANTS LAB RESULTS PRIOR TO MEDICATING. PT UPDATED. PROVIDED PILLOW AND WARM BLANKET FOR COMFORT.
[2020-08-01 15:15] LABS: INTERNATIONAL NORMALIZED RATIO 2.83 (0.93-1.1); PROTHROMBIN TIME 29.5 Seconds (9.6-11.5)
[2020-08-01 15:17] LABS: ALKALINE PHOSPHATASE 194 U/L (45-117); CREATINE KINASE, TOTAL 487 U/L (39-308); TOTAL PROTEIN 7.3 g/dL (6.4-8.2)
[2020-08-01] MEDS ORDERED: LASIX (15:18)
[2020-08-01] MEDS ORDERED: SPIR100T4 PO (15:18)
[2020-08-01 15:19] LABS: HEMOGRAM NOTE RECHECKED
[2020-08-01] MEDS ORDERED: DIPHENHYDRAMINE 50 MG/ML, 1ML ONE (15:19)
--- NOTE | 2020-08-01 15:29 | NUR ---
PT TO CT.
[2020-08-01] MEDS ORDERED: SODIUM CHLORIDE FLUSH 10ML SYR IVF ONE (15:30)
[2020-08-01] MEDS ORDERED: DIPHENHYDRAMINE 50 MG/ML, 1ML IVPush ONE (15:30)
[2020-08-01 15:31] LABS: FREE T4 (FREE THYROXINE) 1.05 ng/dL (0.76-1.46)
--- NOTE | 2020-08-01 15:52 | NUR ---
PT SITTING UP ON EDGE OF BED, REFUSING TO LAY BACK DOWN. W/ 5 MINUTES OF EDUCATED, PT ASSISTED BACK INTO [facility] W/ ASSISTANCE FROM 2 OTHER RNS.
--- NOTE | 2020-08-01 16:00 | NUR ---
PT MOVED SELF TO EDGE OF BED, ANOTHER 10 MINUTES SPENT EDUCATING PT ON HIS FALL RISK STATUS. PT MOVED BACK INTO BED W/ ASSISTANCE OF 2 OTHER RNS. PT RESTING ON LiquiGlide W/ CALL LIGHT IN REACH, CONNECTED TO ALL MONITORING,
--- NOTE | 2020-08-01 16:02 | NUR ---
PURPLE SLIP SENT TO BLOOD BANK.
--- NOTE | 2020-08-01 16:03 | NUR ---
PT CONTINUES TO GET OUT OF [facility], POSING A RISK TO SAFETY. 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
--- NOTE | 2020-08-01 16:06 | NUR ---
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
[2020-08-01 16:11] LABS: MD MORPH REVIEW ONLY
[2020-08-01 16:12] LABS: <PLATELET ESTIMATE> ADEQUATE; <PLT MORPHOLOGY> NORMAL PLT MORPH; ANISOCYTOSIS 1+; HYPOCHROMIA 1+; MICROCYTOSIS 1+; OVALOCYTES 1+; POLYCHROMASIA 1+
--- NOTE | 2020-08-01 16:20 | NUR ---
TASK RN: US IN WITH PT AT THIS TIME. PT HAD A 60 SECOND RUN OF BIGEMINY. UNABLE TO CAPTURE ON EKG. NOTIFIED.
[2020-08-01 16:30] VITALS: BP 111/70
[2020-08-01 16:52] VITALS: BP 115/74
--- NOTE | 2020-08-01 16:58 | NUR ---
PT RESTING ON GURNEY W/ CALL LIGHT IN REACH, RESP EVEN AND UNLABORED, NADN. SIDE RAILS UPX2 AND SITTER AT BEDSIDE FOR PT SAFETY.
--- NOTE | 2020-08-01 17:03 | NUR ---
TELEPHONE CALL TO RAD REGARDING DELAY IN XRAYS. THEY STATE THERE WAS A NOTE THAT PT WAS NOT READY. TECH TO COME NOW FOR XR.
--- NOTE | 2020-08-01 17:07 | NUR ---
PT TO RAD.
[2020-08-01 17:25] VITALS: BP 122/82
[2020-08-01] MEDS ORDERED: ONDANSETRON 2MG/ML, 2ML IVPush PRN (19:00)
[2020-08-01] MEDS ORDERED: PHYTONADIONE 5 MG in SODIUM CHLORIDE 0.9% 50 ML IV ONE (19:00)
[2020-08-01] MEDS ORDERED: DEXTROSE 50%, 50ML SYRINGE IVPush PRN (19:00)
[2020-08-01] MEDS ORDERED: LABETALOL 5MG/ML, 20ML IVPush PRN (19:00)
[2020-08-01] MEDS ORDERED: GLUCAGON 1 MG IM PRN (19:00)
[2020-08-01] MEDS ORDERED: hydrALAzine 20 MG/ML, 1ML IVPush PRN (19:00)
[2020-08-01] MEDS ORDERED: POLYETHYLENE GLYCOL 17 GM PACKET PO PRN (19:00)
[2020-08-01] MEDS ORDERED: ONDANSETRON ODT 4 MG PO PRN (19:00)
[2020-08-01] MEDS ORDERED: DOCUSATE 100 MG CAPSULE PO PRN (19:00)
[2020-08-01] MEDS ORDERED: BISACODYL 10 MG SUPP PR PRN (19:00)
[2020-08-01] MEDS ORDERED: GABAPENTIN 300 MG CAPSULE PO PRN (19:00)
[2020-08-01] MEDS ORDERED: DEXTROSE 4 GM TAB.CHEW PO PRN (19:00)
[2020-08-01 19:21] VITALS: BP 116/71
[2020-08-01 20:12] VITALS: BP 116/71
[2020-08-01 20:20] LABS: BASOPHILS % (AUTO) 0 % (0-1); EOSINOPHILS % (AUTO) 0 % (1-7); LYMPHOCYTES % (AUTO) 3 % (22-44); MEAN CORPUSCULAR HEMOGLOBIN 24.5 pg (27.5-34.5); MEAN PLATELET VOLUME 7.5 fL (7.4-10.4); MONOCYTES % (AUTO) 10 % (2-9); NEUTROPHILS % (AUTO) 87 % (42-75); PLATELET COUNT 156 x10^3/uL (130-400); RED BLOOD COUNT 3.25 x10^6/uL (4.38-5.82); RED CELL DISTRIBUTION WIDTH 21.2 % (9.4-14.8)
[2020-08-01 20:59] LABS: MD SCAN
[2020-08-01] MEDS: INSULIN LISPRO 100 UNITS/ML, PEN SQ-INSULIN SCH (21:00)
[2020-08-01] MEDS: SODIUM CHLORIDE FLUSH 10ML SYR IVF SCH (21:00)
[2020-08-01] MEDS: CEFTRIAXONE PMX 2GM/50ML 50 ML IV SCH (21:11)
[2020-08-01 21:41] LABS: MICROSCOPIC INDICATED
[2020-08-01] MEDS ORDERED: HALOPERIDOL 0.5 MG TABLET PO PRN (22:00)
[2020-08-01] MEDS ORDERED: HALOPERIDOL 5 MG TABLET PO PRN (22:30)
[2020-08-02 00:19] VITALS: BP 126/69
[2020-08-02] MEDS: OXYcodone IR 5MG TABLET PO PRN ×2 (01:24→10:24)
[2020-08-02 05:54] LABS: INTERNATIONAL NORMALIZED RATIO 1.87 (0.93-1.1); PROTHROMBIN TIME 19.4 Seconds (9.6-11.5)
[2020-08-02 05:57] LABS: CALCIUM 8.8 mg/dL (8.5-10.1); CHLORIDE 101 mmol/L (98-107)
[2020-08-02 06:02] LABS: ANION GAP 10 mmol/L (5-15); CREATININE 2.02 mg/dL (0.7-1.3)
[2020-08-02 06:03] LABS: ALANINE AMINOTRANSFERASE 106 U/L (12-78); ALBUMIN 2.4 g/dL (3.4-5.0); ALKALINE PHOSPHATASE 187 U/L (45-117); BILIRUBIN,TOTAL 2.6 mg/dL (0.2-1.0); TOTAL PROTEIN 7.4 g/dL (6.4-8.2)
[2020-08-02 06:51] VITALS: BP 133/64
[2020-08-02] MEDS: INSULIN LISPRO 100 UNITS/ML, PEN SQ-INSULIN SCH ×4 (07:50→21:00)
[2020-08-02 07:55] VITALS: BP 102/65
[2020-08-02 08:24] LABS: CREATININE,URINE RANDOM 61.8 mg/dL
[2020-08-02] MEDS: SODIUM CHLORIDE FLUSH 10ML SYR IVF SCH ×2 (09:46→21:06)
[2020-08-02 12:28] VITALS: BP 100/63
[2020-08-02] MEDS ORDERED: LACTATED RINGERS 1,000 ML IV SCH (12:30)
[2020-08-02 18:32] VITALS: BP 116/75
[2020-08-02] MEDS: PROPRANOLOL 10 MG TABLET PO SCH (18:32)
[2020-08-02 19:53] VITALS: BP 110/72
[2020-08-02] MEDS: CEFTRIAXONE PMX 2GM/50ML 50 ML IV SCH (21:06)
[2020-08-03 00:28] VITALS: BP 109/75
[2020-08-03] MEDS: OXYcodone IR 5MG TABLET PO PRN ×3 (03:33→18:26)
[2020-08-03] MEDS: PROPRANOLOL 10 MG TABLET PO SCH ×2 (04:58→17:04)
[2020-08-03 05:00] VITALS: BP 99/69
[2020-08-03 05:58] LABS: INTERNATIONAL NORMALIZED RATIO 1.37 (0.93-1.1); PROTHROMBIN TIME 14.2 Seconds (9.6-11.5)
[2020-08-03 06:03] LABS: ALANINE AMINOTRANSFERASE 96 U/L (12-78); ALBUMIN 2.5 g/dL (3.4-5.0); ANION GAP 6 mmol/L (5-15); CALCIUM 8.8 mg/dL (8.5-10.1); CHLORIDE 106 mmol/L (98-107)
[2020-08-03 06:06] LABS: ALKALINE PHOSPHATASE 196 U/L (45-117); BILIRUBIN,TOTAL 1.9 mg/dL (0.2-1.0); CREATININE 1.75 mg/dL (0.7-1.3); TOTAL PROTEIN 7.8 g/dL (6.4-8.2)
[2020-08-03 06:54] LABS: BASOPHILS % (AUTO) 0 % (0-1); EOSINOPHILS % (AUTO) 0 % (1-7); LYMPHOCYTES % (AUTO) 6 % (22-44); MEAN CORPUSCULAR HEMOGLOBIN 24.5 pg (27.5-34.5); MEAN PLATELET VOLUME 7.3 fL (7.4-10.4); MONOCYTES % (AUTO) 15 % (2-9); NEUTROPHILS % (AUTO) 79 % (42-75); PLATELET COUNT 120 x10^3/uL (130-400); RED BLOOD COUNT 3.26 x10^6/uL (4.38-5.82)
[2020-08-03 07:38] LABS: MD SCAN
[2020-08-03 07:55] VITALS: BP 100/63
[2020-08-03] MEDS ORDERED: ALBUMIN HUMAN 25% 100 ML IV ONE ×2 (08:30→11:00)
[2020-08-03] MEDS: SODIUM CHLORIDE FLUSH 10ML SYR IVF SCH ×2 (09:00→20:17)
[2020-08-03] MEDS: INSULIN LISPRO 100 UNITS/ML, PEN SQ-INSULIN SCH ×4 (09:54→20:16)
[2020-08-03 13:22] VITALS: BP 115/73
[2020-08-03] MEDS ORDERED: LIDOCAINE 1%, 10ML ONE (15:51)
[2020-08-03] MEDS ORDERED: ALBUMIN HUMAN 25% 100 ML ONE ×2 (16:47→18:15)
[2020-08-03 18:39] VITALS: BP 96/54
[2020-08-03] MEDS: CEFTRIAXONE PMX 2GM/50ML 50 ML IV SCH (20:17)
[2020-08-03 20:33] VITALS: BP 96/62
[2020-08-04] MEDS: OXYcodone IR 5MG TABLET PO PRN ×2 (01:18→15:12)
[2020-08-04 01:30] VITALS: BP 114/75
[2020-08-04 05:22] LABS: BASOPHILS % (AUTO) 0 % (0-1); EOSINOPHILS % (AUTO) 1 % (1-7); LYMPHOCYTES % (AUTO) 8 % (22-44); MEAN CORPUSCULAR HEMOGLOBIN 24.6 pg (27.5-34.5); MEAN CORPUSCULAR HGB CONC 31.5 g/dL (33.2-36.2); MONOCYTES % (AUTO) 16 % (2-9); NEUTROPHILS % (AUTO) 75 % (42-75); PLATELET COUNT 70 x10^3/uL (130-400); RED BLOOD COUNT 3.21 x10^6/uL (4.38-5.82)
[2020-08-04 05:34] LABS: CHLORIDE 103 mmol/L (98-107)
[2020-08-04 05:39] LABS: ANION GAP 7 mmol/L (5-15); CALCIUM 8.8 mg/dL (8.5-10.1); CREATININE 1.47 mg/dL (0.7-1.3)
[2020-08-04] MEDS: PROPRANOLOL 10 MG TABLET PO SCH ×2 (05:57→17:07)
[2020-08-04 06:00] VITALS: BP 114/72
[2020-08-04 06:06] LABS: MD SCAN
[2020-08-04 06:56] VITALS: BP 111/72
[2020-08-04] MEDS: INSULIN LISPRO 100 UNITS/ML, PEN SQ-INSULIN SCH ×4 (08:12→20:56)
[2020-08-04] MEDS: SODIUM CHLORIDE FLUSH 10ML SYR IVF SCH ×2 (09:39→20:56)
[2020-08-04 12:17] VITALS: BP 107/65
[2020-08-04 20:28] VITALS: BP 89/45
[2020-08-04 20:48] VITALS: BP 99/62
[2020-08-04] MEDS: CEFTRIAXONE PMX 2GM/50ML 50 ML IV SCH (20:54)
[2020-08-04] MEDS ORDERED: MELATONIN 5 MG TABLET ONE (21:18)
[2020-08-04] MEDS: MELATONIN 5 MG TABLET PO PRN (21:19)
[2020-08-05 00:48] VITALS: BP 104/69
[2020-08-05 05:33] VITALS: BP 107/64
[2020-08-05] MEDS: PROPRANOLOL 10 MG TABLET PO SCH ×2 (05:41→17:07)
[2020-08-05 07:08] VITALS: BP 121/67
[2020-08-05] MEDS: INSULIN LISPRO 100 UNITS/ML, PEN SQ-INSULIN SCH ×4 (07:59→20:52)
[2020-08-05] MEDS: SODIUM CHLORIDE FLUSH 10ML SYR IVF SCH ×2 (07:59→20:54)
[2020-08-05 12:20] VITALS: BP 108/71
[2020-08-05] MEDS: MELATONIN 5 MG TABLET PO PRN (20:50)
[2020-08-05] MEDS: CEFTRIAXONE PMX 2GM/50ML 50 ML IV SCH (20:50)
[2020-08-05] MEDS: OXYcodone IR 5MG TABLET PO PRN (20:51)
[2020-08-05 23:31] VITALS: BP 115/63
[2020-08-06 02:13] VITALS: BP 107/60
[2020-08-06 05:57] VITALS: BP 102/65
[2020-08-06] MEDS: PROPRANOLOL 10 MG TABLET PO SCH ×2 (06:15→18:33)
[2020-08-06] MEDS: INSULIN LISPRO 100 UNITS/ML, PEN SQ-INSULIN SCH ×4 (08:27→20:56)
[2020-08-06] MEDS: SODIUM CHLORIDE FLUSH 10ML SYR IVF SCH ×2 (08:27→20:57)
[2020-08-06 08:30] VITALS: BP 93/60
[2020-08-06 12:15] VITALS: BP 105/65
[2020-08-06] MEDS: OXYcodone IR 5MG TABLET PO PRN ×2 (12:34→20:55)
[2020-08-06 18:31] VITALS: BP 101/60
[2020-08-06] MEDS: MELATONIN 5 MG TABLET PO PRN (20:54)
[2020-08-06] MEDS: CEFTRIAXONE PMX 2GM/50ML 50 ML IV SCH (20:54)
[2020-08-06] MEDS: INSULIN GLARGINE 100 UNITS/ML, PEN SQ-INSULIN SCH (21:46)
[2020-08-07 01:33] VITALS: BP 102/64
[2020-08-07 03:47] LABS: BASOPHILS % (AUTO) 1 % (0-1); EOSINOPHILS % (AUTO) 1 % (1-7); LYMPHOCYTES % (AUTO) 8 % (22-44); MEAN CORPUSCULAR HEMOGLOBIN 24.6 pg (27.5-34.5); MEAN CORPUSCULAR HGB CONC 31.5 g/dL (33.2-36.2); MEAN PLATELET VOLUME 7.5 fL (7.4-10.4); MONOCYTES % (AUTO) 14 % (2-9); NEUTROPHILS % (AUTO) 76 % (42-75); PLATELET COUNT 85 x10^3/uL (130-400); RED BLOOD COUNT 3.56 x10^6/uL (4.38-5.82); RED CELL DISTRIBUTION WIDTH 22.2 % (9.4-14.8)
[2020-08-07 04:02] LABS: ANION GAP 7 mmol/L (5-15); CALCIUM 8.5 mg/dL (8.5-10.1); CHLORIDE 101 mmol/L (98-107); CREATININE 1.25 mg/dL (0.7-1.3)
[2020-08-07 04:40] LABS: MD SCAN
[2020-08-07 05:39] VITALS: BP 96/60
[2020-08-07] MEDS: PROPRANOLOL 10 MG TABLET PO SCH ×2 (05:40→18:18)
[2020-08-07 07:42] VITALS: BP 122/72
[2020-08-07] MEDS: INSULIN LISPRO 100 UNITS/ML, PEN SQ-INSULIN SCH ×4 (08:28→21:36)
[2020-08-07] MEDS: SODIUM CHLORIDE FLUSH 10ML SYR IVF SCH ×2 (08:29→21:38)
[2020-08-07] MEDS ORDERED: LIDOCAINE 1%, 10ML ONE (13:28)
[2020-08-07 13:39] VITALS: BP 105/70
[2020-08-07] MEDS: ALBUMIN HUMAN 25% 100 ML IV SCH ×2 (13:43→18:43)
[2020-08-07] MEDS: GABAPENTIN 300 MG CAPSULE PO SCH ×2 (16:15→21:34)
[2020-08-07 16:22] VITALS: BP 91/56
[2020-08-07] MEDS ORDERED: CYCLOBENZAPRINE 10 MG TABLET PO PRN (17:30)
[2020-08-07] MEDS ORDERED: METHOCARBAMOL 750 MG TABLET PO PRN (18:30)
[2020-08-07] MEDS ORDERED: SODIUM CHLORIDE 0.9%, 250ML IVBOLUS ONE (18:30)
[2020-08-07 18:38] VITALS: BP 104/64
[2020-08-07] MEDS: CEFTRIAXONE PMX 2GM/50ML 50 ML IV SCH (21:36)
[2020-08-07] MEDS: INSULIN GLARGINE 100 UNITS/ML, PEN SQ-INSULIN SCH (21:37)
[2020-08-08] MEDS: ALBUMIN HUMAN 25% 100 ML IV SCH ×3 (00:53→15:01)
[2020-08-08 00:59] VITALS: BP 119/67
[2020-08-08] MEDS: PROPRANOLOL 10 MG TABLET PO SCH (05:14)
[2020-08-08 06:18] VITALS: BP 104/73
[2020-08-08] MEDS: GABAPENTIN 300 MG CAPSULE PO SCH ×2 (08:01→15:00)
[2020-08-08] MEDS: INSULIN LISPRO 100 UNITS/ML, PEN SQ-INSULIN SCH ×3 (08:08→16:00)
[2020-08-08] MEDS: SODIUM CHLORIDE FLUSH 10ML SYR IVF SCH (09:00)
[2020-08-08 13:59] VITALS: BP 93/56
[2020-08-08] MEDS ORDERED: OXYC5TAB3 PO (14:13)
[2020-08-08] MEDS ORDERED: PROP10TA16 PO (14:13)
[2020-08-08] MEDS ORDERED: MELA5TAB14 PO (14:13)
[2020-08-08] MEDS ORDERED: FURO-93 PO (14:13)
[2020-08-08] MEDS ORDERED: GABA300C PO (14:13)
[2020-08-08] MEDS ORDERED: METH750T2 PO (14:13)
[2020-08-08] MEDS ORDERED: ONDA4TAB13 PO (14:13)
== END 2020-08-08 17:13 | DRG 432 ==
LOC: ED 14:56 → EDIP 17:07 → 4WST 17:59
PROVIDERS: ADMIT Hospitalist; ATTEND Internal Medicine
PROC: 30233N1 Transfusion of Nonautologous Red Blood Cells into Peripheral Vein, Percutaneous Approach (ICD-10-PCS; principal; 2020-08-01)
PROC: 0W9G3ZZ Drainage of Peritoneal Cavity, Percutaneous Approach (ICD-10-PCS; 2020-08-03)
PROC: 0W9G3ZZ Drainage of Peritoneal Cavity, Percutaneous Approach (ICD-10-PCS; 2020-08-07)
DX: K70.31 Alcoholic cirrhosis of liver with ascites (principal); N17.0 Acute kidney failure with tubular necrosis; R65.10 Systemic inflammatory response syndrome (SIRS) of non-infectious origin without acute organ dysfunction; E87.1 Hypo-osmolality and hyponatremia; K76.6 Portal hypertension; D64.9 Anemia, unspecified; D50.0 Iron deficiency anemia secondary to blood loss (chronic); D72.829 Elevated white blood cell count, unspecified; E03.9 Hypothyroidism, unspecified; E11.9 Type 2 diabetes mellitus without complications; E87.70 Fluid overload, unspecified; I10 Essential (primary) hypertension; R29.6 Repeated falls; R62.7 Adult failure to thrive; K75.9 Inflammatory liver disease, unspecified; Z79.01 Long term (current) use of anticoagulants; T45.515A Adverse effect of anticoagulants, initial encounter; Y92.89 Other specified places as the place of occurrence of the external cause; Z86.718 Personal history of other venous thrombosis and embolism; K72.90 Hepatic failure, unspecified without coma; Z87.19 Personal history of other diseases of the digestive system
CPT/HCPCS: 36415; 36430; 36600; 49083; 70450; 71045; 72125; 72190; 74018; 76700; 80048; 80053; 81001; 82140; 82550; 82570; 82728; 82803; 82962; 83036; 83540; 83550; 83735; 84100; 84145; 84300; 84439; 84443; 84466; 85014; 85018; 85025; 85610; 86850; 86900; 86923; 87040; 87070; 87086; 87205; 88112; 88305; 89051; 93005; 93306; 96361; 96374; 96375; 99291; G0378; J0696; J3430; P9047; J1200; J1815; J7030; J7050; J7120; P9016